=== PATIENT | female | born 2005 | race Caucasian/White ===

== ENCOUNTER 2025-05-21 08:28 | Inpatient (IN) ==
--- NOTE | 2025-05-21 08:42 | HISTORY & PHYSICAL EXAMINATION ---
Admit History Smoking Status: Former smoker Other Maternal History Other Maternal History: HPI: This 19 yo @ 38+6 weeks by LMP and confirmed by 10+2 week ultrasound presenting for pre-induction cervical ripening of medical induction of labor for intrauterine growth restriction. Not regularly george or uncomfortable so will defer SVE for now. Recent diagnosis of IUGR, by 05/14/25 ultrasound, baby is measuring in the 9.8% (2680.8g), DELIO 16.1 Reviewed that risks of labor include but are not limited to section, prolonged labor, vacuum extraction, episotomy, hemorrhage, and additional risks exist re: prolonged second stage related to extraction. Reviewed back up OBGYN is available for consultations, emergency interventions and transfer of care if indicted. She has been a patient of [facility] for the duration of her which has remained uncomplicated following the first trimester with the exception of anxiety and the new IUGR diagnosis. ROS: No Headache, visual changes or right upper quadrant abdominal pain. Denies significant N/V. Denies urinary urgency or dysuria. All other symptoms reviewed and were negative except per HPI. In the event of an emergency, accepts the administration of blood products. Recent BP: 114/79 Labs: H&H 12.9/37.3, PLT 294, AST 17, ALT 9 Last u/s EFW: 2,680.8 Total maternal weight gain: 15# Group care: no In the event of an emergency, ACCEPTS the administration of blood products PROBLEMS: Twin dx at 10 weeks gestation with Non-viable x 1 with measurements 1wk behind and no cardiac activity. -Formal ultrasound ordered and confirmed. -Discussed care with antichecking iron worker physician. Dental infection @ 12+5 weeks Anxiety Hyperemesis 05/14/2025 IUGR- 9.8% (2680.8g), DELIO 16.1 Resistive index (RI) values: 0.63 at placenta, 0.62 at abdomen, 0.60-0.72 at mid Systolic/diastolic (S/D) ratio: 2.73 at placenta, 2.6 at abdomen, 2.48-3.53 at mid -- elevation at the mid cord CONSULTS: Breech presentation at 34.5wks, spontaneously version by time of physician consultation. FOB: [birth year] Medical Hx: no significant Surgical Hx: none Social Hx: Monogamous with male partner. Stopped drinking alcohol due to . Denies current use of tobacco, marijuana or other recreational drugs. Reports that she is safe in current relationship. Limited support from her family, was raised by her paternal aunt and uncle. Substance abuse from biological parents, never met her mom. Has met her Dad but no relationship. Some support from her sister. Family Hx: Denies family history of congenital anomalies, Cystic Fibrosis or chromosomal abnormalities. Allergies:NKDA Medications: PNV, LDASA, LMP:08/22/24 CLEVE by LMP: 05/29/25 U/S: @ 10.2wks c/w LMP dating Final CLEVE: 05/29/2025 Pre- weight:128 BMI: 25.8 Blood type: O+ Antibody screen: neg CBC: PLT HCT HGB 13.4/37.8 313 rubella: immune VZV: NOT immune HBsAg: neg HepC: NR RPR/AB-EIA: NR HIV: NR Flu: 03/25/25 COVID: x 1 Declines 03/12/2025 PAP: 05/2023 - normal GC/CT: 11/02/2024 Negative HSV: denies in self and partner Genetic screening: declines FAS: WNL Placenta: anterior, no previa Cord: 3VC DELIO: WNL EFW: 29%tile 50gm GCT: 97 3 hr GTT: TDAP: 03/25/25 Breast Pump: given 3rd trimester 10.4/ 30.8/ 298 3rd trimester RPR NR RSV: 04/09/25 GBS: 05/02/2025 POSITIVE (resistant to clindamycin, NKDA) Delivery plan: Would like to try unmedicated . preference form reviewed on 05/07/2025, Okay with all baby medications contraception Physical exam: Normocephalic, atraumatic No increased work of breathing Abdomen gravid, soft, nontender. EFW 2900g FHR baseline 130, moderate variability, + accelerations, occasional decelerations. Overall, category I tracing Contractions palpate moderate every 3-6 minutes with soft resting tone SVE deferred, vertex, membranes intact Bilateral LE's no edema Mood is good, mildly anxious but comfortable with management plan Assessment: 19 yo @ 38+6 weeks gestation by 10+4 wk U/S Intrauterine growth restriction at 9.8% GBS positive Plan: Admit to [facility] for pre-induction cervical ripening followed by medical induction of labor Continuous monitoring Beging GBS prophylaxis with ROM or onset of active labor. Jacuzzi PRN. Epidural PRN Maternal Request. Anticipate . Meds/Allgy Home Medications Ambulatory Orders Medication Instructions Recorded Confirmed vits no.126-ferrous fum 1 tab PO DAILY 05/21/25 28 mg iron-folic acid 800 mcg tablet (Classic ) ferrous sulfate 325 mg (65 mg 325 mg PO Q OTHER DAY #9 0 tabs 02/19/25 05/21/25 iron) tablet aspirin 81 mg chewable tablet 81 mg PO DAILY 05/21/25 05/21/25 (Aspirin Childrens) Allergies Allergies Allergy/AdvReac Type Severity Reaction Status Date / Time No Known Drug Allergies Allergy Verified 05/13/25 11:20 PFSH Active Problems All Active Problems (Updated 05/21/25 @ 08:45 by CHUCKY Liu) Intrauterine growth restriction (IUGR) affecting care of mother, third trimester, single gestation (Acute) Uterine size date discrepancy (Acute) Supervision of normal in second trimester (Acute) Vaginal discharge during in second trimester (Acute) Supervision of high risk in first trimester (Acute) Continuing after intrauterine of one fetus or more, unspecified trimester, not applicable or unspecified (Acute) Twin in first trimester (Acute) Supervision of normal (Acute) Medical History Medical History (Updated 05/21/25 @ 08:45 by CHUCKY Liu) No pertinent past medical history Surgical History Surgical History No pertinent past surgical history Family History Family History (Updated 10/12/24 @ 13:55 by Marilynn Malloy RN) Other Family history unknown Social History Social History (Updated 01/18/25 @ 08:56 by CHUCKY Liu) Smoking Status: Never smoker If you are a former smoker, when did you quit? (Date/Year): 2023 Number of Years Smoked: 2 Do you dip or chew tobacco?: No Do you vape?: No Do you feel safe in your home environment?: Yes History of physical, verbal, emotional, or financial abuse?: No ETOH Use: None Substance Use: denies use and cannabis (any form) Plan for Labor Plan For Labor I expect patient to be DC'd or transferred within 96 hours.: Yes Conclusion/Plan Problem List (1) Intrauterine growth restriction (IUGR) affecting care of mother, third trimester, single gestation: Lab Results 05/21/25 09:00 05/21/25 09:00
[2025-05-21] MEDS ORDERED: OXYTOCIN 10 UNIT/ML VIAL IM PRN (08:44)
[2025-05-21] MEDS ORDERED: TRANEXAMIC ACID IN NACL 1,000 MG/100 ML BAG IV PRN (08:44)
[2025-05-21] MEDS ORDERED: TERBUTALINE 1 MG/ML VIAL SUBQ PRN (08:44)
[2025-05-21] MEDS ORDERED: CARBOPROST TROMETHAMINE 250 MCG/ML VIAL IM PRN (08:44)
[2025-05-21] MEDS ORDERED: LABETALOL 20 MG/4 ML SYRINGE IVP PRN ×3 (08:44)
[2025-05-21] MEDS ORDERED: METHYLERGONOVINE 0.2 MG/ML VIAL IM PRN (08:44)
[2025-05-21] MEDS ORDERED: fentaNYL 100 MCG/2 ML VIAL IVP PRN (08:44)
[2025-05-21] MEDS ORDERED: hydrALAZINE INJ 20 MG/ML VIAL IVP PRN (08:44)
[2025-05-21 09:24] LABS: HCT - HEMATOCRIT 37.3 % (37.0-47.0); HGB - HEMOGLOBIN 12.9 g/dL (12.0-16.0); MEAN PLATELET VOLUME 11.6 fL (7.9-10.8); NRBC ABSOLUTE COUNT (AUTO) 0.00 x10^3/uL; NUCLEATED RED BLOOD CELLS AUTO 0.0 /100WBC; PLT - PLATELET COUNT 294 10^3/uL (130-450); RED CELL DISTRIBUTION WIDTH 13.9 % (12.0-15.0)
[2025-05-21] MEDS: SODIUM CHLORIDE FLUSH 0.9% 10 ML SYRINGE IVP SCH (09:32)
[2025-05-21 09:39] LABS: ALT ALANINE AMINOTRANSFERASE 9.0 IU/L (10-60); AST ASPARTATE AMINOTRANSFERASE 17.0 IU/L (10-42); BUN - BLOOD UREA NITROGEN 6.0 mg/dL (6-20); CARBON DIOXIDE - CO2 23.0 mmol/L (21-32); CREATININE 0.6 mg/dL (0.6-1.3); GFR - MDRD 126.0 (>89)
--- NOTE | 2025-05-21 12:15 | PHARMACY PROGRESS NOTE ---
Best Possible Medication History Admit Date and Time: 05/21/25 0844 Home Medications Medication Instructions Recorded Confirmed Type vits no.126-ferrous fum 1 tab PO DAILY 05/21/25 History 28 mg iron-folic acid 800 mcg tablet (Classic ) ferrous sulfate 325 mg (65 mg 325 mg PO Q OTHER DAY #9 0 tabs 02/19/25 05/21/25 Rx iron) tablet aspirin 81 mg chewable tablet 81 mg PO DAILY 05/21/25 05/21/25 History (Aspirin Childrens) Processed by: Pharmacy (Medication reconciliation completed by Lead Enterprise ArchitectEmily) Medications reviewed in ED?: No Medication History completed: Yes Patient Interview: Completed Secondary Source(s): Insurance records [facility] Statement: As the person ultimately responsible for medication therapy, providers are able to order a medication from an existing home medication list in [facility] via the "Reconcile Routine" prior to Confirmation of that medication by user support analyst supervisor. Such practice is discouraged except when the physician, in their clinical judgment, deems that a medical need exists for a medication without regard to previous use.
--- NOTE | 2025-05-21 14:04 | PROVIDER PROGRESS NOTE ---
Subjective Subjective Subjective: S: Patient comfortable. Feeling only occasional tightening O: FHR 125, moderate variability, + accelerations, rare deceleration. One episode of maternal tracing vs prolonged deceleration discussed with nursing. SVE 1/70/-2, anterior, vtx, intact A: 19yo @ 38+6 wks gestation by 10+4wk U/S Preinduction cervical ripening s/p 1 dose misoprostol. IUGR GBS positive P: Initiate continuous monitoring ampicillin for GBS prophylaxis per protocol with ROM or onset active labor Support patient desire for pain intervention when needed Current Medications Current Medications Current Medications: Current Medications Generic Name Dose Route Start Last Admin Trade Name Freq PRN Reason Stop Dose Admin Carboprost Tromethamine 250 mcg 05/21/25 08:44 Carboprost Tromethamine 250 Mcg/Ml Vial IM .ONCE PRN Hemorrhage Fentanyl 50 mcg 05/21/25 08:44 Fentanyl 100 Mcg/2 Ml Vial IVP Q1H PRN Severe Pain (score 7-10) Hydralazine HCl 5 - 10 mg 05/21/25 08:44 Hydralazine Inj 20 Mg/Ml Vial IVP Q20M PRN SBP> or= 160 OR DBP> or= 110 Protocol Lactated Ringer's 500 mls @ 999 mls/hr 05/21/25 08:44 Lr IV PRN PRN Heart Rate Abnormalities Oxytocin/Sodium Chloride 500 mls @ 999 mls/hr 05/21/25 08:44 Pitocin/Sodium Chloride IV PRN PRN POST- HEMORR PREVENTION Protocol 999 MILLIUNIT/MIN Tranexamic Acid 1,000 mg in 100 mls @ 600 mls/hr 05/21/25 08:44 Tranexamic 1,000 Mg/100ml-Nacl IV Q30M PRN EBL >1200mL and within 3hr Labetalol HCl 20 - 80 mg 05/21/25 08:44 Labetalol 20 Mg/4 Ml Syringe IVP Q10M PRN SBP> or= 160 OR DBP> or= 110 Protocol Labetalol HCl 20 mg 05/21/25 08:44 Labetalol 20 Mg/4 Ml Syringe IVP .ONCE PRN SBP> or= 160 OR DBP> or= 110 Protocol Labetalol HCl 20 - 40 mg 05/21/25 08:44 Labetalol 20 Mg/4 Ml Syringe IVP Q10M PRN SBP> or= 160 OR DBP> or= 110 Protocol Lidocaine HCl 20 ml 05/21/25 08:44 Lidocaine 1% 20 Ml Mdv ID 05/24/25 08:44 .ONCE PRN PERINEAL REPAIR Methylergonovine Maleate 0.2 mg 05/21/25 08:44 Methylergonovine 0.2 Mg/Ml Vial IM .ONCE PRN Hemorrhage Misoprostol 600 mcg 05/21/25 08:44 Misoprostol 200 Mcg Tablet BC .ONCE PRN Hemorrhage Misoprostol 800 mcg 05/21/25 08:44 Misoprostol 200 Mcg Tablet DE .ONCE PRN Hemorrhage Misoprostol 50 mcg 05/21/25 09:00 05/21/25 09:31 Misoprostol 100 Mcg Tablet BC 50 mcg Q4H CELENA Administration Nifedipine 10 - 20 mg 05/21/25 08:44 Nifedipine 10 Mg Capsule PO Q20M PRN SBP> or= 160 OR DBP> or= 110 Protocol Oxytocin 10 unit 05/21/25 08:44 Oxytocin 10 Unit/Ml Vial IM .ONCE PRN Step One if no IV access. Sodium Chloride 10 ml 05/21/25 08:44 Sodium Chloride Flush 0.9% 10 Ml Syringe IVP PRN PRN NEEDED PER PROVIDER ORDERS Sodium Chloride 10 ml 05/21/25 09:00 05/21/25 09:32 Sodium Chloride Flush 0.9% 10 Ml Syringe IVP 10 ml Q8H CELENA Administration Terbutaline Sulfate 0.25 mg 05/21/25 08:44 Terbutaline 1 Mg/Ml Vial SUBQ .ONCE PRN Tachystole Objective Vital Signs/Intake & Output Vital Signs: Vital Signs x48h Temp Pulse BP 05/21/25 08:39 36.8 C 83 114/79 Intake & Output: Intake & Output 05/18/25 05/19/25 05/20/25 05/21/25 23:59 23:59 23:59 23:59 Weight (kg) 143 lb 0.01 oz Lab Results 05/21/25 09:00 05/21/25 09:00 Other Labs: Lab Results x24hrs 05/21/25 Range/Units 09:00 WBC 10.8 (4.8-10.8) x10^3/uL RBC 4.16 L (4.20-5.40) 10^6/uL Hgb 12.9 (12.0-16.0) g/dL Hct 37.3 (37.0-47.0) % MCV 89.7 (81.0-99.0) fL MCH 31.0 (27.0-31.0) pg MCHC 34.6 (32.0-36.0) g/dL RDW 13.9 (12.0-15.0) % Plt Count 294 (130-450) 10^3/uL MPV 11.6 H (7.9-10.8) fL Neut # (Auto) 7.9 H (1.5-6.6) 10^3/uL Lymph # (Auto) 1.8 (1.5-3.5) 10^3/uL Cobb # (Auto) 0.9 (0.0-1.0) 10^3/uL Eos # (Auto) 0.0 (0.0-0.7) 10^3/uL Baso # (Auto) 0.0 (0.0-0.1) 10^3/uL Absolute Nucleated RBC 0.00 x10^3/uL Nucleated RBC % 0.0 /100WBC Sodium 134 L (135-145) mmol/L Potassium 3.2 L (3.5-4.5) mmol/L Chloride 103 (101-111) mmol/L Carbon Dioxide 23 (21-32) mmol/L Anion Gap 8.0 (6-13) BUN 6 (6-20) mg/dL Creatinine 0.6 (0.6-1.3) mg/dL Estimated GFR (MDRD) 126 (>89) Glucose 73 L (74-104) mg/dL Calcium 9.2 (8.5-10.3) mg/dL Total Bilirubin 0.5 (0.2-1.0) mg/dL AST 17 (10-42) IU/L ALT 9 L (10-60) IU/L Alkaline Phosphatase 149 H (42-121) IU/L Total Protein 6.8 (6.4-8.9) g/dL Albumin 3.8 (3.2-5.5) g/dL Globulin 3.0 (2.1-4.2) g/dL Albumin/Globulin Ratio 1.3 (1.0-2.2) Blood Type O POSITIVE Antibody Screen NEGATIVE Assessment/Plan Problem List (1) Intrauterine growth restriction (IUGR) affecting care of mother, third trimester, single gestation:
--- NOTE | 2025-05-21 17:19 | PROVIDER PROGRESS NOTE ---
Labor Progress Note Labor Progress Note Labor Progress Note/Additional Text: S: Overall very comfortable. Was feeling some tightening in her low back but not any longer. Had some increased bloody show following first SVE. Agreeable to repeating SVE as she feels it would help her to know if she's making any change. O: FHR 115-125, moderate variability, + accelerations, no significant decelerations. Overall category I tracing. SVE unchanged. Likely overestimated effacement upon last exam. A more complete exam this round -/-2 A: 19yo @ 38+6 wks gestation by 10+4wk U/S IUGR Pre-induction cervical ripening. Postdates GBS positive P: Continuos monitoring Begin ampicillin with for GBS prophylaxis per protocol with ROM or onset of active labor. Encourage movement and activity while awake. Encourage rest through the night if not in active labor. States she didn't sleep last night. Support patient desire for pain intervention.
[2025-05-22] MEDS ORDERED: LIDOCAINE 2%-EPI 1:100000 20 ML MDV ONE (08:20)
[2025-05-22] MEDS ORDERED: ROPIVACAINE 0.2% 200 MG/100 ML BAG EP ONE (08:20)
[2025-05-22] MEDS: LACTATED RINGERS 1,000 ML IV PRN (08:21)
--- NOTE | 2025-05-22 08:35 | PROVIDER PROGRESS NOTE ---
Labor Progress Note Labor Progress Note Labor Progress Note/Additional Text: S: Breathing and crying through contractions which have increased in intensity the last few hours. She requests an epidural for pain management and anesthesia has been notified. Her is supportive at the bedside. O: FHR 135, Moderate variability, + accelerations, rare subtle decelerations (mostly variable/early) with spontaneous resolution to baseline. Will perform SVE following epidural once comfortable. Intact. Normal show following exam. Last exam last evening /-2. A: 19yo @ 39wks gestation by 10+4 wk U/S Preinduction cervical ripening with medical induction labor for intrauterine growth restriction to follow GBS positive P: Anesthesia notified for placement of epidural for pain management. Continuous monitoring now. Begin ampicillin for GBS prophylaxis per protocol with onset of active labor, ROM, or less than 8 hours prior to anticipated. Will encouraged rotation in bed on peanut ball after patient is comfortable with epidural. Anticipate .
[2025-05-22] MEDS ORDERED: NALOXONE 0.4 MG/ML VIAL IVP PRN ×2 (08:59→12:29)
[2025-05-22] MEDS ORDERED: ONDANSETRON 4 MG/2 ML VIAL IVP PRN (08:59)
[2025-05-22] MEDS ORDERED: ePHEDrine 50 MG/ML VIAL IVP PRN (08:59)
[2025-05-22] MEDS ORDERED: ROPIVACAINE 0.2% 200 MG/100 ML BAG EP PRN (08:59)
--- NOTE | 2025-05-22 08:59 | ANESTHESIA PROCEDURE NOTE ---
Pre-Anesthesia VS, & Labs Diagnosis Surgical Diagnosis:: Active labor Procedure Procedure: vaginal delivery Vitals Vital Signs: Temp Pulse Resp BP Pulse Ox 36.8 C 84 16 132/85 H 100 05/22/25 04:28 05/22/25 04:28 05/22/25 04:28 05/22/25 04:28 05/22/25 04:28 NPO NPO: Other (clear liquids during labor) Is Patient ?: Yes Lab Results Current Lab Results: Laboratory Tests 05/21/25 09:00: WBC 10.8, RBC 4.16 L, Hgb 12.9, Hct 37.3, MCV 89.7, MCH 31.0, MCHC 34.6, RDW 13.9, Plt Count 294, MPV 11.6 H, Neut # (Auto) 7.9 H, Lymph # (Auto) 1.8, Towner # (Auto) 0.9, Eos # (Auto) 0.0, Baso # (Auto) 0.0, Absolute Nucleated RBC 0.00, Nucleated RBC % 0.0, Sodium 134 L, Potassium 3.2 L, Chloride 103, Carbon Dioxide 23, Anion Gap 8.0, BUN 6, Creatinine 0.6, Estimated GFR (MDRD) 126, Glucose 73 L, Calcium 9.2, Total Bilirubin 0.5, AST 17, ALT 9 L, A lkaline Phosphatase 149 H, Total Protein 6.8, Albumin 3.8, Globulin 3.0, Albumin/Globulin Ratio 1.3, Blood Type O POSITIVE, Antibody Screen NEGATIVE Lab results reviewed: Yes 05/21/25 09:00 05/21/25 09:00 Meds/Allgy Home Medications Ambulatory Orders Medication Instructions Recorded Confirmed vits no.126-ferrous fum 1 tab PO DAILY 05/21/25 28 mg iron-folic acid 800 mcg tablet (Classic ) ferrous sulfate 325 mg (65 mg 325 mg PO Q OTHER DAY #9 0 tabs 02/19/25 05/21/25 iron) tablet aspirin 81 mg chewable tablet 81 mg PO DAILY 05/21/25 05/21/25 (Aspirin Childrens) Allergies Allergies Allergy/AdvReac Type Severity Reaction Status Date / Time No Known Drug Allergies Allergy Verified 05/13/25 11:20 PFSH Active Problems All Active Problems Intrauterine growth restriction (IUGR) affecting care of mother, third trimester, single gestation (Acute) Uterine size date discrepancy (Acute) Supervision of normal in second trimester (Acute) Vaginal discharge during in second trimester (Acute) Supervision of high risk in first trimester (Acute) Continuing after intrauterine of one fetus or more, unspecified trimester, not applicable or unspecified (Acute) Twin in first trimester (Acute) Supervision of normal (Acute) Medical History Medical History No pertinent past medical history Surgical History Surgical History No pertinent past surgical history Family History Family History (Updated 10/12/24 @ 13:55 by Marilynn Malloy RN) Other Family history unknown Social History Social History Smoking Status: Never smoker If you are a former smoker, when did you quit? (Date/Year): 2023 Number of Years Smoked: 2 Do you dip or chew tobacco?: No Do you vape?: No Do you feel safe in your home environment?: Yes History of physical, verbal, emotional, or financial abuse?: No ETOH Use: None Substance Use: denies use and cannabis (any form) POLST POLST CPR Status: Attempt Resuscitation (CPR) Level of Medical Intervention: Full Treatment Anesthesia Exam (Expanded) Exam General: Alert, Oriented x3 and Moderate distress Dental: WNL Mouth Openin Fingerbreadth Neck Mobility: Normal Mallampati classification: II Thyromental Distance: 4-6 cm Exam Exam Vital Signs: Vital Signs x48h Temp Pulse Resp BP Pulse Ox 05/22/25 04:28 36.8 C 84 16 132/85 H 100 05/22/25 00:58 36.6 C 77 16 98/59 L 98 Plan Plan Anesthesia Type: Epidural Consent for Procedure(s) Verified and Reviewed: Yes Code Status: Attempt Resuscitation ASA Classification ASA classification: 2-Mild systemic disease Is this case an emergency?: No
[2025-05-22] MEDS: LACTATED RINGERS 1,000 ML IV SCH (09:12)
--- NOTE | 2025-05-22 09:20 | PROVIDER PROGRESS NOTE ---
Labor Progress Note Labor Progress Note Labor Progress Note/Additional Text: S: Now comfortable with epidural. Feeling shaky, verbalizes it may be her anxiety. Overall doing well. Her is supportive at the bedside. O: FHR 130, moderate variability, intermittent early decelerations and variables. Overall, category I tracing and reassuring SVE 4/100/-1, AROM, vtx A: 19yo @ 39+0wks gestation by 10+4wk U/S S/P x4 doses of misoprostol last dose approximately 0615. Early labor AROM approximately 0900. Moderate amount of clear fluid. IUGR GBS positive P: Maintain effective epidural for a pain management. Begin GBS prophalaxis now. If needed, 4 hours following last dose of misoprostol, will begin oxytocin. Initiate continuous monitoring now. Continue ampicillin for GBS prophylaxis per protocol. Will encouraged rotation in bed on peanut ball after patient is comfortable with epidural. Anticipate .
[2025-05-22] MEDS: AMPICILLIN 2 GM in SODIUM CHLORIDE 0.9% MINIBAG 100 ML IV ONE (09:23)
[2025-05-22] MEDS: OXYTOCIN/SODIUM CHLORIDE 500 ML IV SCH (10:14)
[2025-05-22] MEDS ORDERED: OXYTOCIN/SODIUM CHLORIDE 500 ML IV SCH (10:30)
[2025-05-22] MEDS: OXYTOCIN/SODIUM CHLORIDE 500 ML IV PRN (12:15)
[2025-05-22] MEDS ORDERED: hydrALAZINE INJ 20 MG/ML VIAL IVP PRN ×2 (12:29)
[2025-05-22] MEDS ORDERED: LABETALOL 5 MG/1 ML 20 ML MDV IVP PRN (12:29)
[2025-05-22] MEDS ORDERED: LABETALOL 20 MG/4 ML SYRINGE IVP PRN ×2 (12:29)
[2025-05-22] MEDS ORDERED: OXYTOCIN/SODIUM CHLORIDE 500 ML IV PRN (12:29)
[2025-05-22] MEDS ORDERED: SIMETHICONE CHEW 80 MG TABLET PO PRN (12:29)
--- NOTE | 2025-05-22 12:45 | DELIVERY NOTE ---
OB Labor and Delivery Note Delivery Comments (Free Text/Narrative) Delivery Comments (Free Text/Narrative): This 19-year-old, @ 38+6 weeks gestation by 10+4 week ultrasound/ LMP presented for preinduction cervical ripening yesterday (05/21/25) for medical induction of labor. Cervix was 1/70/-2, anterior, medium approximately 4 hours after first dose of misoprostol. Chand score 7. misoprostol x4 doses and oxytocin maximum infusion of 4mu/min. FHR pattern demonstrated 120-135 baseline in a category I prior to second stage. She was 4/100/-1 and ruptured following epidural placement at about 0900 and GBS prophalaxis was started at that time and she received only a single dose of antibiotics prior to delivery. Approximately 2.5 hours later she was complete/+2 and ready to deliver. Active pushing delayed for approximately 15 minutes as the team prepared the room for delivery. Her , Uma, was present, supportive and respectful throughout the labor and delivery experience. : While at +3 station 3.5 minutes of heart rate below 90, with significant variable decelerations approximately 5 minutes prior to the prolonged deceleration. Gently Ritgen maneuver utilized to promote flexion and allow for delivery of head. Normal spontaneous vaginal delivery of a viable male infant "Jonh" on 05/22/2025 @ 11:59, likely SGA. Nuchal x 3, reduced x2 and baby delivered through before the third nuchal could be reduced. Shoulders delivered easily, no compound delivery. The was placed on maternal abdomen, stimulated, dried and placed skin to skin. Apgars 7 & 8 @ 1 & 5 minutes. The umbilical cord was allowed to stop pulsating at which time it was doubly clamped by delivering provider and cut by FOB. 3VC. Cord blood was obtained. Fundal massage and gently cord traction applied for active management of the third stage, placenta delivered spontaneously and intact and appeared normal. EBL 500cc. Placenta was not sent to pathology. Pitocin administered via IV for hemostasis and allowed to run freely. Uterine massage was performed until uterus was deemed firm. weight 2,487g Inspection of the perineum: perineum intact. She had a superficial abrasion on upper left labia minora that was hemotstatic and left unrepaired. Upon re- inspection the patient was hemostatic. Uterus again massaged and found to be firm. Needle and sponge counts were correct. Uterine fundus firm and there is no excessive bleeding. Tissues well approximated. Skin to skin initiated. Family bonding well. Both mother and baby are in stable condition.
[2025-05-22] MEDS: SODIUM CHLORIDE FLUSH 0.9% 10 ML SYRINGE IVP PRN (14:15)
[2025-05-22] MEDS: AMPICILLIN 1 GM in SODIUM CHLORIDE 0.9% MINIBAG 100 ML IV SCH (14:34)
[2025-05-22] MEDS: IBUPROFEN 600 MG TABLET PO PRN (15:57)
[2025-05-22 17:46] LABS: HCT - HEMATOCRIT 29.9 % (37.0-47.0); HGB - HEMOGLOBIN 10.3 g/dL (12.0-16.0); MEAN PLATELET VOLUME 11.4 fL (7.9-10.8); NRBC ABSOLUTE COUNT (AUTO) 0.00 x10^3/uL; NUCLEATED RED BLOOD CELLS AUTO 0.0 /100WBC; PLT - PLATELET COUNT 251 10^3/uL (130-450); RED CELL DISTRIBUTION WIDTH 13.5 % (12.0-15.0)
[2025-05-22] MEDS: DOCUSATE SODIUM 100 MG CAPSULE PO SCH (22:19)
[2025-05-23] MEDS: ACETAMINOPHEN 500 MG TABLET PO PRN (00:24)
--- NOTE | 2025-05-23 07:31 | PROVIDER PROGRESS NOTE ---
Subjective Subjective Subjective: Subjective: Patient reports she is doing well. Comfortable WITHOUT narcotic pain management Lochia appropriate. Denies heavy bleeding. Ambulating. Was having some near syncopal episode last evening. Mildly anemic but an otherwise unremarkable CBC after event. 500cc LR bolus, encouraged oral hydration as well as food intake. Feeling better today, not near as light headed. She continues to ask for standby assistance when ambulating in room and to bathroom. Able to ambulate to bathroom, not using bedside commode. Pelvic pain well-controlled. Tolerating oral intake. Diet: Regular. Voiding without difficulty. Passing flatus. Denies BM. Patient is bonding with baby in room Baby feeding better now, working with nursing staff. Baby has had some low sugars through the night so they're supplementing as guided by hypoglycemia protocol. Denies feeling lightheaded, dizzy or excessively fatigued. Objective General: Alert, oriented, no apparent distress. Cardiovascular: No edema. Regular rate. Regular rhythm. Lungs: No increased work of breathing. Abdomen: Uterus firm. Below umbilicus. No guarding or rebound tenderness. Extremities: No pain on palpation. Distal pulses intact. FF@U, small flow overall. Did pass an isolated moderate sized clot after getting up. Discussed pooling blood during times of inactivity. Blood type: O+ VZV: Non-reactive. Varicella vaccine ordered. Discussed with patient and primary RN. Patient considering but may decline. Rubella: Immune Assessment and Plan day 1. 19yo s/p 05/23/2025 @ 11:59 following MEDICAL induction of labor @ 39 weeks for IUGR; SGA . GBS positive, inadequately treated; anticipate discharge tomorrow afternoon (after 48 hours of life) - Routine care Mild anemia due to expected blood loss (EBL 500cc) - Hemoglobin drop, from 12.9 on admission to 10.3 approximately 5 1/2 hours . - Will resume oral iron. Order placed. - has been able to ambulate in room with standby assistance from , November, as well as nursing staff. - Does not feel as light headed as she did following the first ambulations after immediate recovery. Maternal goals for PPD#1/ hospital day #3: 1. Rest, encourage a long nap later this morning or this afternoon. 2. Eat meals and snacks to keep up energy and blood glucose 3. Ambulate in hallway by end of day. Current Medications Current Medications Current Medications: Current Medications Generic Name Dose Route Start Last Admin Trade Name Freq PRN Reason Stop Dose Admin Acetaminophen 1,000 mg 05/22/25 12:29 05/23/25 00:24 Acetaminophen 500 Mg Tablet PO 1,000 mg Q8HR PRN Administration Mild Pain or Fever>38C(100.4F) Carboprost Tromethamine 250 mcg 05/21/25 08:44 Carboprost Tromethamine 250 Mcg/Ml Vial IM .ONCE PRN Hemorrhage Diphenhydramine HCl 25 mg 05/21/25 17:19 Diphenhydramine 25 Mg Capsule PO QPM PRN sleep Docusate Sodium 100 mg 05/22/25 21:00 05/22/25 22:19 Docusate Sodium 100 Mg Capsule PO 100 mg BID CELENA Administration Ephedrine Sulfate 5 mg 05/22/25 08:59 Ephedrine 50 Mg/Ml Vial IVP Q5M PRN For SBP<100;give until SBP>100 Fentanyl 50 mcg 05/21/25 08:44 Fentanyl 100 Mcg/2 Ml Vial IVP Q1H PRN Severe Pain (score 7-10) Hydralazine HCl 5 - 10 mg 05/21/25 08:44 Hydralazine Inj 20 Mg/Ml Vial IVP Q20M PRN SBP> or= 160 OR DBP> or= 110 Protocol Hydralazine HCl 10 mg 05/22/25 12:29 Hydralazine Inj 20 Mg/Ml Vial IVP .ONCE PRN SBP> or= 160 OR DBP> or= 110 Protocol Hydralazine HCl 5 - 10 mg 05/22/25 12:29 Hydralazine Inj 20 Mg/Ml Vial IVP Q20M PRN SBP >=160 and/or DBP >=110 Protocol Lactated Ringer's 500 mls @ 999 mls/hr 05/21/25 08:44 05/22/25 09:13 Lr IV Infused PRN PRN Infusion Heart Rate Abnormalities Oxytocin/Sodium Chloride 500 mls @ 999 mls/hr 05/21/25 08:44 05/22/25 13:00 Pitocin/Sodium Chloride IV Infused PRN PRN Titration POST- HEMORR PREVENTION Protocol 999 MILLIUNIT/MIN Tranexamic Acid 1,000 mg in 100 mls @ 600 mls/hr 05/21/25 08:44 Tranexamic 1,000 Mg/100ml-Nacl IV Q30M PRN EBL >1200mL and within 3hr Ropivacaine 200 mg in 100 mls @ 0 mls/hr 05/22/25 08:59 Naropin 0.2% EP PRN PRN PAIN Protocol Per Protocol Lactated Ringer's 1,000 mls @ 125 mls/hr 05/22/25 10:00 05/22/25 18:11 Lr IV Infused .Q8H ECLENA Infusion Oxytocin/Sodium Chloride 500 mls @ 2 mls/hr 05/22/25 10:00 05/22/25 12:15 Pitocin/Sodium Chloride IV Infused TITR CELENA Titration Protocol 2 MILLIUNIT/MIN Oxytocin/Sodium Chloride 500 mls @ 999 mls/hr 05/22/25 12:29 Pitocin/Sodium Chloride IV PRN PRN POST- HEMORR PREVENTION Protocol 999 MILLIUNIT/MIN Ibuprofen 600 mg 05/22/25 12:29 05/22/25 22:18 Ibuprofen 600 Mg Tablet PO 600 mg Q6HR PRN Administration Moderate Pain (Level 4-6) Labetalol HCl 20 - 80 mg 05/21/25 08:44 Labetalol 20 Mg/4 Ml Syringe IVP Q10M PRN SBP> or= 160 OR DBP> or= 110 Protocol Labetalol HCl 20 mg 05/21/25 08:44 Labetalol 20 Mg/4 Ml Syringe IVP .ONCE PRN SBP> or= 160 OR DBP> or= 110 Protocol Labetalol HCl 20 - 40 mg 05/21/25 08:44 Labetalol 20 Mg/4 Ml Syringe IVP Q10M PRN SBP> or= 160 OR DBP> or= 110 Protocol Labetalol HCl 20 - 80 mg 05/22/25 12:29 Labetalol 5 Mg/1 Ml 20 Ml Mdv IVP Q10M PRN SBP> or= 160 OR DBP> or= 110 Protocol Labetalol HCl 20 - 40 mg 05/22/25 12:29 Labetalol 20 Mg/4 Ml Syringe IVP Q10M PRN SBP> or= 160 OR DBP> or= 110 Protocol Labetalol HCl 20 mg 05/22/25 12:29 Labetalol 20 Mg/4 Ml Syringe IVP .ONCE PRN SBP >=160 and/or DBP >=110 Protocol Lidocaine HCl 20 ml 05/21/25 08:44 Lidocaine 1% 20 Ml Mdv ID 05/24/25 08:44 .ONCE PRN PERINEAL REPAIR Methylergonovine Maleate 0.2 mg 05/21/25 08:44 Methylergonovine 0.2 Mg/Ml Vial IM .ONCE PRN Hemorrhage Misoprostol 600 mcg 05/21/25 08:44 Misoprostol 200 Mcg Tablet BC .ONCE PRN Hemorrhage Misoprostol 800 mcg 05/21/25 08:44 Misoprostol 200 Mcg Tablet MN .ONCE PRN Hemorrhage Naloxone HCl 0.1 mg 05/22/25 08:59 Naloxone 0.4 Mg/Ml Vial IVP Q2M PRN RR<8 Naloxone HCl 0.4 mg 05/22/25 12:29 Naloxone 0.4 Mg/Ml Vial IVP .ONCE PRN Opioid Overdose Nifedipine 10 - 20 mg 05/21/25 08:44 Nifedipine 10 Mg Capsule PO Q20M PRN SBP> or= 160 OR DBP> or= 110 Protocol Nifedipine 10 - 20 mg 05/22/25 12:29 Nifedipine 10 Mg Capsule PO Q20M PRN SBP >=160 and/or DBP >=110 Protocol Ondansetron HCl 4 mg 05/22/25 08:59 Ondansetron 4 Mg/2 Ml Vial IVP Q6HR PRN Nausea / Vomiting Oxytocin 10 unit 05/21/25 08:44 Oxytocin 10 Unit/Ml Vial IM .ONCE PRN Step One if no IV access. Simethicone 80 mg 05/22/25 12:29 Simethicone Chew 80 Mg Tablet PO TID PRN Gas Sodium Chloride 10 ml 05/21/25 08:44 05/22/25 17:40 Sodium Chloride Flush 0.9% 10 Ml Syringe IVP 10 ml PRN PRN Administration NEEDED PER PROVIDER ORDERS Sodium Chloride 10 ml 05/21/25 09:00 05/22/25 17:42 Sodium Chloride Flush 0.9% 10 Ml Syringe IVP Not Given Q8H CELENA Terbutaline Sulfate 0.25 mg 05/21/25 08:44 Terbutaline 1 Mg/Ml Vial SUBQ .ONCE PRN Tachystole Objective Vital Signs/Intake & Output Vital Signs: Vital Signs x48h Temp Pulse Resp BP Pulse Ox 05/23/25 02:00 36.8 C 65 13 121/79 100 Intake & Output: Intake & Output 05/20/25 05/21/25 05/22/25 05/23/25 23:59 23:59 23:59 23:59 Intake Total 320 / 320 2057 / 2057 300 / 300 Output Total 875 / 875 Balance 320 / 320 1182 / 1182 300 / 300 Weight (kg) 143 lb 0.01 oz Lab Results 05/22/25 17:40 05/21/25 09:00 Other Labs: Lab Results x24hrs 05/22/25 Range/Units 17:40 WBC 17.5 H (4.8-10.8) x10^3/uL RBC 3.34 L (4.20-5.40) 10^6/uL Hgb 10.3 L (12.0-16.0) g/dL Hct 29.9 L (37.0-47.0) % MCV 89.5 (81.0-99.0) fL MCH 30.8 (27.0-31.0) pg MCHC 34.4 (32.0-36.0) g/dL RDW 13.5 (12.0-15.0) % Plt Count 251 (130-450) 10^3/uL MPV 11.4 H (7.9-10.8) fL Neut # (Auto) 13.7 H (1.5-6.6) 10^3/uL Lymph # (Auto) 2.2 (1.5-3.5) 10^3/uL Starr # (Auto) 1.3 H (0.0-1.0) 10^3/uL Eos # (Auto) 0.0 (0.0-0.7) 10^3/uL Baso # (Auto) 0.1 (0.0-0.1) 10^3/uL Absolute Nucleated RBC 0.00 x10^3/uL Nucleated RBC % 0.0 /100WBC
[2025-05-23] MEDS ORDERED: VARICELLA VACCINE LIVE/PF 1,350 UNIT/0.5 ML VIAL SUBQ ONE (07:49)
[2025-05-23] MEDS: FERROUS SULFATE 325 MG TABLET PO SCH (08:26)
--- NOTE | 2025-05-23 16:29 | Discharge Summary ---
Discharge Summary Admit Date: 05/21/25 Discharge Date: 05/23/25 Discharging Provider: Chris Garrison CNM Code Status: Attempt Resuscitation HPI History of Present Illness: Diagnosis on admission: 1. 19 yo @ 38+6 weeks gestation by 10+4 wk U/S 2. Intrauterine growth restriction at 9.8% 3. GBS positive Diagnosis on Discharge 1. day 1. 2. 19yo s/p 05/23/2025 @ 11:59 following MEDICAL induction of labor @ 39 weeks for IUGR; SGA . 3. GBS positive, inadequately treated; anticipate discharge tomorrow afternoon (after 48 hours of life) - Routine care Mild anemia due to expected blood loss (EBL 500cc) - Hemoglobin drop, from 12.9 on admission to 10.3 approximately 5 1/2 hours . - Resume oral iron - Ambulating today without syncopal/near syncopal event. Was able to shower today as well. Eating meals. Has rested but not tired enough to sleep/nap today. Physical exam this morning General: Alert, oriented, no apparent distress. Cardiovascular: No edema. Regular rate. Regular rhythm. Lungs: No increased work of breathing. Abdomen: Uterus firm. Below umbilicus. No guarding or rebound tenderness. Extremities: No pain on palpation. Distal pulses intact. FF@U, small flow overall. Did pass an isolated moderate sized clot after getting up early this morning. By conversation this afternoon, has not experienced any further passing of clots or increased bleeding. Brief History: This 19-year-old, @ 38+6 weeks gestation by 10+4 week ultrasound/ LMP presented for preinduction cervical ripening yesterday (05/21/25) for medical induction of labor. Cervix was 1/70/-2, anterior, medium approximately 4 hours after first dose of misoprostol. Chand score 7. Misoprostol x4 doses and oxytocin maximum infusion of 4mu/min. FHR pattern demonstrated 120-135 baseline in a category I prior to second stage. She was 4/100/-1 and ruptured following epidural placement at about 0900 and GBS prophalaxis was started at that time and she received only a single dose of antibiotics prior to delivery. Approximately 2.5 hours later she was complete/+2 and ready to deliver. Active pushing delayed for approximately 15 minutes as the team prepared the room for delivery. Her , Uma, was present, supportive and respectful throughout the labor and delivery experience. : While at +3 station 3.5 minutes of heart rate below 90, with significant variable decelerations approximately 5 minutes prior to the prolonged deceleration. Gently Ritgen maneuver utilized to promote flexion and allow for delivery of head. Normal spontaneous vaginal delivery of a viable male "Jonh" on 05/22/2025 @ 11:59, likely SGA. Nuchal x 3, reduced x2 and baby delivered through before the third nuchal could be reduced. Shoulders delivered easily, no compound delivery. The was placed on maternal abdomen, stimulated, dried and placed skin to skin. Apgars 7 & 8 @ 1 & 5 minutes. The umbilical cord was allowed to stop pulsating at which time it was doubly clamped by delivering provider and cut by FOB. 3VC. Cord blood was obtained. Fundal massage and gently cord traction applied for active management of the third stage, placenta delivered spontaneously and intact and appeared normal. EBL 500cc. Placenta was not sent to pathology. Pitocin administered via IV for hemostasis and allowed to run freely. Uterine massage was performed until uterus was deemed firm. weight 2,487g. Perineum intact. She had a superficial abrasion on upper left labia minora that was homeostatic and left unrepaired. Upon re-inspection the patient was homeostatic She has been doing well in her course. She is ambulating and tolerating a regular diet. She is urinating without difficulty and her lochia is normal. Her pain is well controlled without narcotic management. She will be discharged today on day #1 as baby is likely being transferred later tonight to a tertiary center given he is unable to maintain his blood glucose levels. She has been to take IBU, tylenol and stool softeners PRN. She intends to follow up with [facility] in 1 week for telehealth, telehealth appointment has been scheduled for 05/31/2024 @ 12:30 with SCOTT Nguyen. She has been given precautions to call if she has any new or worsening sx such as fevers, chills, abdominal pain, increasing bleeding, or foul smelling vaginal lochia. preeclamptic precautions reviewed as well. She has been reminded that she will have access to the midwifery line until her 6 week visit but that any concerns she has for baby should be directed to her pediatric care team. VZV: non-immune, vaccine ordered Rubella: immune RH: O+ ALLERGIES Allergies Allergy/AdvReac Type Severity Reaction Status Date / Time No Known Drug Allergies Allergy Verified 05/13/25 11:20 MEDICATIONS Ambulatory Orders Medication Instructions Recorded Confirmed vits no.126-ferrous fum 1 tab PO DAILY 05/21/25 28 mg iron-folic acid 800 mcg tablet (Classic ) ferrous sulfate 325 mg (65 mg 325 mg PO Q OTHER DAY #9 0 tabs 02/19/25 05/21/25 iron) tablet LABS 05/22/25 17:40 05/21/25 09:00 Discharge Plan Discharge Patient Disposition: 01 Home, Self Care Prescriptions: Continued ferrous sulfate 325 mg (65 mg iron) tablet 325 mg PO Q OTHER DAY Qty: 90 4RF Classic 28 mg iron- 800 mcg tablet 1 tab PO DAILY Discontinued aspirin [Aspirin Childrens] 81 mg tablet,chewable 81 mg PO DAILY Activity Restrictions: No Restrictions Diet: Regular Print Language: Nepali Patient Instructions: Care Vaginal ..., Feeding: First Year: Pediatric, After a Vaginal , Having Sex After Childbirth, How to Breastfeed, Holds, Expressing Your Milk, Breast Care After , Breastfeed Common Questions, : Caring for Yourself, - Latch On
[2025-05-23 17:03] VITALS: TEMP 97.9; O2SAT 97
--- NOTE | 2025-05-23 17:08 | Labor Flowsheet ---
Labor Flowsheet Datetime Report Generated by CPN: 05/23/2025 17:08 Datetime: 05/23/2025 16:58 VITAL SIGNS NBP Sys/Anna/Mean (mmHg): 122 : 91 : 97 Pulse: 92 Datetime: 05/22/2025 20:49 SpO2 (%): 98 Datetime: 05/22/2025 13:45 Stage of : Recovery Datetime: 05/22/2025 11:59 UTERINE ACTIVITY Monitor Mode: External Frequency (min): 2-3 Quality: Strong Duration (sec): 60-70 Pattern: Normal: <= 5 Contractions in 10 Minutes Resting Tone (Palpate): Relaxed ASSESSMENT A Monitor Mode: External US FHR Baseline Rate : indeterminate Variability: Moderate 6-25 bpm Accelerations: None Decelerations: Late; Variable; Prolonged Category: Category II LaborFlag: Labor Datetime: 05/22/2025 11:57 Patient Position/Activity: Left Lateral Datetime: 05/22/2025 11:46 STAGE 2 Pushing: Coached on Pushing; Urge to Push Pushing Position: Pushing with Contractions Pushing Progress: Descent with Pushing Datetime: 05/22/2025 11:32 VAGINAL EXAM Dilatation (cm): 10.0 Station: 2 Datetime: 05/22/2025 11:31 COMMUNICATION Communication: Provider at Bedside Provider Notified (Name): Burckhardt Datetime: 05/22/2025 11:30 Actions for Decelerations: Side to Side Datetime: 05/22/2025 11:19 Patient Care Comments: Pt unable to move her legs, pt repositioned with assist Datetime: 05/22/2025 11:17 Temperature (C): 37.0 MEDICATIONS Pitocin (milliunits): Increased to @ 4 Datetime: 05/22/2025 11:15 Provider Reviewed Strip: Yes Communication Comments: Reviewed strip with provider inclucing late decels. Provider states to increase pit to 4 Datetime: 05/22/2025 10:53 Anesthesia Level Check: T10- Umbilicus Datetime: 05/22/2025 10:11 I/O Interventions: Clear Liquids Given; Vásquez Cath Inserted Datetime: 05/22/2025 09:42 Vital Sign Comments: Maternal HR 70 by radial palpation Datetime: 05/22/2025 09:03 Membrane Status: Ruptured Membranes Rupture Method: Artificial Amniotic Fluid Color: Clear Amniotic Fluid Amount: Moderate Datetime: 05/22/2025 09:01 Effacement (%): 100 Exam by: Maryhardt Datetime: 05/22/2025 08:40 Epidural Procedure: Loading Dose Datetime: 05/22/2025 08:31 Anesthesia Comments: local Datetime: 05/22/2025 08:26 PROCEDURE TIME OUT Procedure Verify: Correct Patient Identity; Correct Side and Site are Marked; Accurate Procedure Consent Form; Agreement on Procedure to be Done; Correct Patient Position; Relevant Images and Results are Properly Labeled and Displayed; Addressed Need to Administer Antibiotics or Fluids for Irrigation; Safety Precautions Based on Patient History or Medication Use Epidural Positioning: Sitting Datetime: 05/22/2025 08:21 ANESTHESIA Anesthesia Plans: Epidural Datetime: 05/22/2025 07:51 Pain Assessment Comments: Pt declines fentanyl Datetime: 05/22/2025 07:38 Notification Reason: Status Update Datetime: 05/22/2025 07:36 Pain Presence: Intermittent Datetime: 05/22/2025 07:05 Monitor Interventions for FHR: Ultrasound Adjusted FHR Baseline Changes: No Baseline Change PATIENT CARE Oxygen Method: Room Air Datetime: 05/22/2025 06:40 Hygiene: Shower Datetime: 05/22/2025 06:12 Cervical Ripening Agents: Cytotec @ 25mcg Medication Comments: 25cmg buccal miso Datetime: 05/22/2025 05:59 PAIN Pain Scale: 8 Pain Type: Cramping; Contraction Pain Location: Abdomen; Back Pain Goal: 8 Pain Relief Measures: Comfort Measures Pain Coping: Talking Through Contractions; Breathing Through Contractions MATERNAL ASSESSMENT Level of Consciousness: Alert Headache: Denies Nausea/Vomiting: Denies Comfort Measures: Breathing/Relaxation; Hot Shower/Tub/Spa; Family Support TEACHING Instructional Method: Patient Instructed; Family/Support Person Instructed Plan of Care: Plan of Care Discussed; Labor Teaching Comments: labor positions, comfort measures Datetime: 05/22/2025 04:49 Labor/Induction: Cervical Ripening Related: Hydration Datetime: 05/22/2025 04:20 Contraction Comments: sleeping Datetime: 05/21/2025 23:45 Comments: monitoring restored Datetime: 05/21/2025 23:16 Strip Reviewed by: D. Monsalve, RN Datetime: 05/21/2025 20:47 Respirations: 16 Datetime: 05/21/2025 19:25 RUQ Epigastric Pain: Denies Datetime: 05/21/2025 12:04 Cervix, Position: Anterior
[2025-05-23 17:09] VITALS: BP 122/76
== END 2025-05-23 17:06 | disposition home or self-care (01) | DRG 806 ==
LOC: WFO 08:28 → FBP 08:31
PROVIDERS: ADMIT Nurse Practitioner; ATTEND Nurse Practitioner